=== PATIENT | female | born 1965 | race American Indian/Alaskan Native ===

== ENCOUNTER 2018-09-03 06:19 | Day surgery (SDC) | payer BC ==
[~2018-09-03 06:19] MED LIST: Dextrose 5%-0.45% NaCl 1,000 ML IV SCH; Midazolam 1 MG/ML 2 ML SDV ONE; Sodium Chloride 0.9% 10 ML Syringe FLUSH PRN; fentaNYL 100 MCG/2 ML SDV ONE
[2018-09-03] MEDS ORDERED: Midazolam 1 MG/ML 2 ML SDV IV ONE ×7 (06:20→07:39)
[2018-09-03] MEDS ORDERED: fentaNYL 100 MCG/2 ML SDV IV ONE ×4 (06:20→07:43)
--- NOTE | 2018-09-03 15:16 | OR ---
DATE: 09/03/2018 PROCEDURE: Total colonoscopy. INSTRUMENT USED: PCF-H190DL Olympus video colonoscope. PREMEDICATIONS: Fentanyl 125 mcg intravenous, Versed 4 mg intravenous. Nasal O2 cannula. The procedure was done under pulse oximetry, BP recording, and cement finisher. INDICATION: The patient with rectal bleeding and chronic constipation, unexplained, not responsive to medical measures. Colonoscopic examination is done for detection of any polypoid lesions and removal, endoscopic hemostasis therapy if needed. Initial rectal exam showed external hemorrhoidal tags. Rigid anoscopy was normal. DESCRIPTION OF PROCEDURE: The colonoscope was passed with ease up to the ileocecal area. Photographs were taken of the normal-appearing cecum, identified by double-bulged ileocecal folds. No bleeding was noted from any of the visualized areas at the commencement of the examination. No stricture. No vascular ectasia. No large isolated ulcerations seen. No evidence of diffuse inflammatory bowel disease in the form of friability, contact bleeding, or ulcerations. No polyp or tumor mass identified. The bowel preparation was found to be adequate, [place] Scale 2. Probing the proximal sides of folds and flexures, using adequate distention and clearing up the stool material, withdrawal of the scope was made, cecum to rectum time over 6 minutes. No bleeding was noted from any of the visualized areas at the completion of examination. IMPRESSION: External hemorrhoids. The patient tolerated the procedure well. [facility] /[id number]
--- NOTE | 2018-09-04 09:26 | LETTER ---
09/03/2018 Ignacia Roberson MD [facility] [address] [place] [address] RE: ANETA MORENO : [address] Roberson: Ms. Aneta Moreno had colonoscopic examination done today and she tolerated the procedure well. I hear send a copy of the endoscopy note and photographs for your review. She is put on Citrucel 1 tablespoon p.o. daily, response to be noted. Thank you. Sincerely, [facility] [place] /[id number]
== END 2018-09-03 09:55 | disposition home or self-care (01) ==
LOC: DL.ENDO 06:19
PROVIDERS: ATTEND Internal Medicine Gastroenterology
DX: K62.5 Hemorrhage of anus and rectum (principal); K59.09 Other constipation; K64.4 Residual hemorrhoidal skin tags; E66.09 Other obesity due to excess calories
CPT/HCPCS: 45378; J2250; J3010; J7042